=== PATIENT | female | born 2000 | race Caucasian/White ===

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

== ENCOUNTER → 2022-10-06 | Outpatient (CLI) | payer OTHER ==
[2022-10-06 11:12] LABS: CHOLESTEROL 124 mg/dL (<200); LDL CHOLESTEROL 65 mg/dL (9-159); SGPT/ALT 20 U/L (10-49); TRIGLYCERIDES 45 mg/dl (<150)
== END | disposition home or self-care (01) ==
LOC: LAB 10:05
PROVIDERS: ATTEND Pediatrics
DX: R63.5 Abnormal weight gain (principal)